=== PATIENT | female | born 1955 | race Two or more races ===

== ENCOUNTER 2017-08-26 11:26 | Outpatient (CLI) | payer OTHER ==
[~2017-08-26 11:26] MED LIST: CIPRO500 MG PO; COZAAR100 MG PO; Carafate Susp 1G/10ML BLIST.PACK PO; DULCOLAX STOOL100 MG PO; ETODOLAC400 MG PO; EXFORGE 10-3201 TAB PO; Levsin/Sl 0.125 MG TAB.SUBL SL; MIRALAX12 EA PO; NABUMETONE500 MG PO; ORPH100T PO; PRILOSEC40 MG PO; PROTONIX40 MG PO; TIZANIDINE HCL4 MG PO; TUSSI PRES-B L120 M1 PO; ZITHROMAX TRI-500 MG PO
== END 2017-08-26 11:27 | disposition home or self-care (01) ==
LOC: RAD 501 11:26
DX: R07.89 Other chest pain (principal)

== ENCOUNTER 2017-10-27 12:20 | Outpatient (CLI) | payer OTHER | END 2017-10-27 12:25 | disposition home or self-care (01) | LOC: MAMO-SONO 12:20 | DX: Z12.31 Encounter for screening mammogram for malignant neoplasm of breast (principal); Z87.898 Personal history of other specified conditions; N63.10 Unspecified lump in the right breast, unspecified quadrant; N63.20 Unspecified lump in the left breast, unspecified quadrant; N60.09 Solitary cyst of unspecified breast ==

== ENCOUNTER 2018-04-23 09:53 | Outpatient (CLI) | payer OTHER ==
[2018-04-28] MEDS ORDERED: TIZANIDINE HCL4 MG PO (15:51)
[2018-04-28] MEDS ORDERED: NABUMETONE500 MG PO (15:51)
== END 2018-04-23 10:11 | disposition home or self-care (01) ==
LOC: MRI 09:53
DX: M25.561 Pain in right knee (principal); M25.562 Pain in left knee
CPT/HCPCS: 73721

== ENCOUNTER 2018-04-26 10:06 | Outpatient (CLI) | payer OTHER ==
[2018-04-28] MEDS ORDERED: NABUMETONE500 MG PO (15:51)
[2018-04-28] MEDS ORDERED: TIZANIDINE HCL4 MG PO (15:51)
== END 2018-04-26 10:11 | disposition home or self-care (01) ==
LOC: NUCLEAR 10:06
DX: I11.9 Hypertensive heart disease without heart failure (principal); I25.9 Chronic ischemic heart disease, unspecified

== ENCOUNTER 2018-05-13 08:46 | Day surgery (SDC) | payer OTHER | END 2018-05-13 11:30 | disposition home or self-care (01) | LOC: AMB-ENDOS 08:46 | DX: D12.5 Benign neoplasm of sigmoid colon (principal); K63.5 Polyp of colon ==

== ENCOUNTER 2018-05-27 09:58 | Outpatient (CLI) | payer OTHER | END 2018-05-27 10:05 | disposition home or self-care (01) | LOC: NUCLEAR 09:58 | DX: I10 Essential (primary) hypertension (principal); R94.31 Abnormal electrocardiogram [ECG] [EKG] ==

== ENCOUNTER 2019-03-16 08:35 | Outpatient (CLI) | payer OTHER ==
[~2019-03-16 08:35] MED LIST changes: +BACLOFEN10 MG PO
== END 2019-03-16 08:46 | disposition home or self-care (01) ==
LOC: NUCLEAR 08:35
DX: M13.0 Polyarthritis, unspecified (principal); M15.0 Primary generalized (osteo)arthritis
CPT/HCPCS: 78306; A9503

== ENCOUNTER 2019-03-18 18:34 | Emergency (ER) | payer OTHER ==
[~2019-03-18] VITALS: Ht 154.9 cm; Wt 53.5 kg
[2019-03-18] MEDS ORDERED: CAMBIA50 MG (19:02)
[2019-03-18] MEDS ORDERED: AVAPRO300 MG (19:03)
[2019-03-18] MEDS ORDERED: GABAPENTIN800 MG (19:03)
[2019-03-18] MEDS ORDERED: AMLODIPINE BESY10 MG (19:04)
[2019-03-18] MEDS ORDERED: CLONAZEPAM2 M1 (19:05)
== END 2019-03-18 20:40 | disposition home or self-care (01) ==
LOC: ER 18:34
DX: S40.012A Contusion of left shoulder, initial encounter (principal); S70.02XA Contusion of left hip, initial encounter; W18.09XA Striking against other object with subsequent fall, initial encounter; Y93.89 Activity, other specified; Y92.098 Other place in other non-institutional residence as the place of occurrence of the external cause; Y99.8 Other external cause status

== ENCOUNTER → 2019-03-25 | Outpatient (CLI) | payer OTHER ==
[~2019-03-25] MED LIST changes: +AMLODIPINE BESY10 MG; +AVAPRO300 MG; +CAMBIA50 MG; +CLONAZEPAM2 M1; +GABAPENTIN800 MG
== END | disposition home or self-care (01) ==
LOC: SONOGRAMA 09:43 → MAMO-SONO 10:45
DX: S40.912A Unspecified superficial injury of left shoulder, initial encounter (principal)

== ENCOUNTER 2019-06-03 07:27 | Outpatient (CLI) | payer OTHER | END 2019-06-03 08:00 | disposition home or self-care (01) | LOC: NUCLEAR 07:27 | DX: I20.9 Angina pectoris, unspecified (principal) | CPT/HCPCS: 78452; 93017; A9500; J0153 ==

== ENCOUNTER 2019-06-09 11:46 | Outpatient (CLI) | payer OTHER | END 2019-06-09 11:50 | disposition home or self-care (01) | LOC: LAB 11:46 | DX: N20.0 Calculus of kidney (principal) ==

== ENCOUNTER 2019-06-17 09:59 | Outpatient (CLI) | payer OTHER | END 2019-06-17 11:50 | disposition home or self-care (01) | LOC: TOM 09:59 | DX: K66.0 Peritoneal adhesions (postprocedural) (postinfection) (principal); K30 Functional dyspepsia; R10.10 Upper abdominal pain, unspecified; R10.30 Lower abdominal pain, unspecified | CPT/HCPCS: 74177; Q9965 ==

== ENCOUNTER 2019-08-16 05:21 | Day surgery (SDC) | payer OTHER ==
[~2019-08-16 05:21] MED LIST changes: +KETO10TA2 PO
== END 2019-08-16 10:35 | disposition home or self-care (01) ==
LOC: AMB-ENDOS 05:21
DX: K62.89 Other specified diseases of anus and rectum (principal); K66.0 Peritoneal adhesions (postprocedural) (postinfection); Z86.010 Personal history of colon polyps

== ENCOUNTER 2019-09-01 12:44 | Outpatient (CLI) | payer OTHER | END 2019-09-01 13:44 | disposition home or self-care (01) | LOC: NUCLEAR 12:44 | DX: M81.0 Age-related osteoporosis without current pathological fracture (principal) ==

== ENCOUNTER 2019-10-26 10:54 | Outpatient (CLI) | payer OTHER | END 2019-10-26 11:04 | disposition home or self-care (01) | LOC: MRI 10:54 | DX: M54.2 Cervicalgia (principal); M54.5 Low back pain | CPT/HCPCS: 72141; 72148 ==

== ENCOUNTER 2020-01-26 11:24 | Emergency (ER) | payer OTHER ==
[~2020-01-26] VITALS: Ht 154.9 cm; Wt 56.7 kg
== END 2020-01-26 16:33 | disposition home or self-care (01) ==
LOC: ER 11:24
DX: S00.83XA Contusion of other part of head, initial encounter (principal); S06.0X0A Concussion without loss of consciousness, initial encounter; M54.2 Cervicalgia; Z03.818 Encounter for observation for suspected exposure to other biological agents ruled out; W22.8XXA Striking against or struck by other objects, initial encounter; Y93.89 Activity, other specified; Y92.89 Other specified places as the place of occurrence of the external cause; Y99.8 Other external cause status

== ENCOUNTER 2020-06-25 12:20 | Outpatient (CLI) | payer OTHER ==
[~2020-06-25 12:20] MED LIST changes: +NABUMETONE750 MG PO
[2020-07-04] MEDS ORDERED: ZANAFLEX2 MG PO (11:34)
== END 2020-06-25 14:46 | disposition home or self-care (01) ==
LOC: MRI 12:20
PROVIDERS: ATTEND Internal Medicine
DX: G93.89 Other specified disorders of brain (principal)
CPT/HCPCS: 70551

== ENCOUNTER 2020-06-29 10:51 | Outpatient (CLI) | payer OTHER ==
[2020-07-04] MEDS ORDERED: ZANAFLEX2 MG PO (11:34)
== END 2020-06-29 11:19 | disposition home or self-care (01) ==
LOC: NUCLEAR 10:51
PROVIDERS: ATTEND Internal Medicine
DX: I65.23 Occlusion and stenosis of bilateral carotid arteries (principal)

== ENCOUNTER 2020-09-05 12:32 | Outpatient (CLI) | payer OTHER ==
[~2020-09-05 12:32] MED LIST changes: +ZANAFLEX2 MG PO
== END 2020-09-05 12:43 | disposition home or self-care (01) ==
LOC: MRI 12:32
PROVIDERS: ATTEND Physical Medicine & Rehabilitation
DX: M54.5 Low back pain (principal); M51.37 Other intervertebral disc degeneration, lumbosacral region
CPT/HCPCS: 72148

== ENCOUNTER 2020-11-22 10:53 | Outpatient (CLI) | payer OTHER | END 2020-11-22 10:57 | disposition home or self-care (01) | LOC: RAD 10:53 | PROVIDERS: ATTEND Student in an Organized Health Care Education/Training Program | DX: M54.16 Radiculopathy, lumbar region (principal); M54.12 Radiculopathy, cervical region; M47.812 Spondylosis without myelopathy or radiculopathy, cervical region ==

== ENCOUNTER 2020-11-28 14:36 | Outpatient (CLI) | payer OTHER | END 2020-11-28 14:54 | disposition home or self-care (01) | LOC: MRI 14:36 | PROVIDERS: ATTEND Student in an Organized Health Care Education/Training Program | DX: M54.16 Radiculopathy, lumbar region (principal); M47.812 Spondylosis without myelopathy or radiculopathy, cervical region; M54.12 Radiculopathy, cervical region | CPT/HCPCS: 72141; 72146 ==

== ENCOUNTER 2021-01-25 10:59 | Outpatient (CLI) | payer OTHER | END 2021-01-25 15:57 | disposition home or self-care (01) | LOC: TOM 10:59 | PROVIDERS: ATTEND Surgery | DX: N20.0 Calculus of kidney (principal); R31.21 Asymptomatic microscopic hematuria | CPT/HCPCS: 74177; Q9965 ==

== ENCOUNTER → 2021-06-17 | Outpatient (CLI) | payer OTHER ==
[~2021-06-17] MED LIST changes: +CYCLOBENZAPRINE10 MG PO; +DICLOFENAC SOD100 MG PO
== END | disposition home or self-care (01) ==
LOC: RAD 15:38
PROVIDERS: ATTEND Orthopaedic Surgery
DX: M25.561 Pain in right knee (principal); M25.562 Pain in left knee

== ENCOUNTER → 2021-06-25 | Outpatient (CLI) | payer OTHER | END | disposition home or self-care (01) | LOC: MRI 10:46 | PROVIDERS: ATTEND Orthopaedic Surgery | DX: M25.561 Pain in right knee (principal); M25.562 Pain in left knee | CPT/HCPCS: 73721 ==

== ENCOUNTER 2021-08-27 05:40 | Day surgery (SDC) | payer OTHER | END 2021-08-27 10:45 | disposition home or self-care (01) | LOC: AMB-ENDOS 05:40 | PROVIDERS: ATTEND Internal Medicine Gastroenterology | DX: K29.70 Gastritis, unspecified, without bleeding (principal); K29.80 Duodenitis without bleeding ==

== ENCOUNTER 2021-08-29 10:11 | Outpatient (CLI) | payer OTHER | END 2021-08-30 16:32 | disposition home or self-care (01) | LOC: MRI 10:11 | PROVIDERS: ATTEND Anesthesiology | DX: M54.50 Low back pain, unspecified (principal) | CPT/HCPCS: 72148 ==

== ENCOUNTER 2022-04-08 13:49 | Outpatient (CLI) | payer OTHER ==
[~2022-04-08 13:49] MED LIST changes: +GABAPENTIN800 MG PO
== END 2022-04-08 14:14 | disposition home or self-care (01) ==
LOC: MRI 13:49
PROVIDERS: ATTEND Internal Medicine
DX: M54.17 Radiculopathy, lumbosacral region (principal)
CPT/HCPCS: 72148

== ENCOUNTER 2022-09-15 11:01 | Outpatient (CLI) | payer OTHER ==
[~2022-09-15 11:01] MED LIST changes: +CYMBALTA30 MG PO
== END 2022-09-15 11:05 | disposition home or self-care (01) ==
LOC: NUCLEAR 11:01
PROVIDERS: ATTEND Internal Medicine
DX: M81.0 Age-related osteoporosis without current pathological fracture (principal)

== ENCOUNTER 2022-11-19 15:07 | Emergency (ER) | payer OTHER ==
[~2022-11-19] VITALS: Ht 154.9 cm; Wt 56.7 kg
[2022-11-19] MEDS ORDERED: ATORVASTATIN CA40 MG (16:12)
[2022-11-19] MEDS ORDERED: AMLODIPINE-OLM1 EAC3 (16:12)
[2022-11-19] MEDS ORDERED: AVAPRO300 MG (16:12)
== END 2022-11-19 21:10 | disposition home or self-care (01) ==
LOC: ER 15:07
DX: M94.0 Chondrocostal junction syndrome [Tietze] (principal)

== ENCOUNTER 2022-12-02 09:52 | Outpatient (CLI) | payer OTHER ==
[~2022-12-02 09:52] MED LIST changes: +AMLODIPINE-OLM1 EAC3; +ATORVASTATIN CA40 MG
== END 2022-12-02 10:19 | disposition home or self-care (01) ==
LOC: MRI 09:52
PROVIDERS: ATTEND Internal Medicine Gastroenterology
DX: Z86.73 Personal history of transient ischemic attack (TIA), and cerebral infarction without residual deficits (principal); K21.9 Gastro-esophageal reflux disease without esophagitis; K66.0 Peritoneal adhesions (postprocedural) (postinfection); R13.14 Dysphagia, pharyngoesophageal phase; K21.00 Gastro-esophageal reflux disease with esophagitis, without bleeding
CPT/HCPCS: 70551

== ENCOUNTER 2022-12-25 07:14 | Outpatient (CLI) | payer OTHER | END 2022-12-25 07:15 | disposition home or self-care (01) | LOC: NUCLEAR 07:14 | PROVIDERS: ATTEND Internal Medicine | DX: I20.9 Angina pectoris, unspecified (principal) | CPT/HCPCS: 78452; 93017; A9500; J0153 ==

== ENCOUNTER 2022-12-31 10:04 | Outpatient (CLI) | payer OTHER | END 2022-12-31 10:05 | disposition home or self-care (01) | LOC: NUCLEAR 10:04 | PROVIDERS: ATTEND Internal Medicine | DX: I25.118 Atherosclerotic heart disease of native coronary artery with other forms of angina pectoris (principal); I11.9 Hypertensive heart disease without heart failure; G45.9 Transient cerebral ischemic attack, unspecified; R07.9 Chest pain, unspecified ==

== ENCOUNTER 2023-03-02 14:54 | Emergency (ER) | payer OTHER ==
[~2023-03-02] VITALS: Ht 160 cm; Wt 72.6 kg
== END 2023-03-02 21:44 | disposition home or self-care (01) ==
LOC: ER 14:54
DX: N30.90 Cystitis, unspecified without hematuria (principal); Z88.8 Allergy status to other drugs, medicaments and biological substances
CPT/HCPCS: 36415; 74176; 96365; 99284; J0744; J1885

== ENCOUNTER 2023-03-12 13:51 | Outpatient (CLI) | payer OTHER | END 2023-03-12 14:00 | disposition home or self-care (01) | LOC: SONOGRAMA 13:51 | PROVIDERS: ATTEND Internal Medicine | DX: N18.31 Chronic kidney disease, stage 3a (principal) ==

== ENCOUNTER 2023-07-06 11:59 | Emergency (ER) | payer OTHER ==
[~2023-07-06] VITALS: Ht 154.9 cm; Wt 58.1 kg
[2023-07-06 14:19] LABS: HEMATOCRIT 40.1 % (36.0-45.00); HEMOGLOBIN 13.4 g/dL (12.0-15.00); MEAN CORPUSCULAR HEMOGLOBIN 30.5 pg (27.00-32.0); MEAN CORPUSCULAR HGB CONC 33.5 g/dl (32.0-36.0); PLATELET COUNT 307 K/uL (150-450); RED CELL DISTRIBUTION WIDTH 14.1 % (11.5-14.5)
[2023-07-06 14:45] LABS: ALBUMIN 3.8 gm/dL (3.4-5.0); BILIRUBIN TOTAL 0.45 mg/dL (0.3-1.2); CALCIUM 9.5 mg/dL (8.5-10.1); CREATININE SERUM 0.63 mg/dL (0.55-1.02); GFR 94.84; POTASSIUM 3.89 mEq/L (3.5-5.1); TOTAL PROTEIN 7.8 gm/dL (6.4-8.2)
[2023-07-06 15:40] LABS: PH,URINE 5.5 (5.0-8.0); URINE APPEARANCE Cloudy; URINE BILIRRUBIN Negative (NEGATIVE); URINE BLOOD Large; URINE COLOR Yellow; URINE GLUCOSE Negative (NEGATIVE); URINE LEUKOCYTE Moderate; URINE NITRATE Negative; URINE PROTEIN 30 (NEGATIVE); URINE UROBILINOGEN 0.2 E.U./dl
[2023-07-06 15:43] LABS: URINE BACTERIA 241.8 uL (0.0-1933); URINE EPITHELIAL CELLS 2.7 uL (0.0-38.8); URINE RBC 344.3 uL (0.0-20.8); URINE WBC 2444.1 uL (0.0-23.2)
[2023-07-07 07:13] LABS: HEMATOCRIT 35.3 % (36.0-45.00); HEMOGLOBIN 12.2 g/dL (12.0-15.00); MEAN CELL VOLUME 90.3 fL (80.00-100.00); MEAN CORPUSCULAR HEMOGLOBIN 31.1 pg (27.00-32.0); MEAN CORPUSCULAR HGB CONC 34.5 g/dl (32.0-36.0); PLATELET COUNT 251 K/uL (150-450); RED BLOOD COUNT 3.91 M/uL (4.00-6.00); RED CELL DISTRIBUTION WIDTH 13.9 % (11.5-14.5)
[2023-07-07 07:44] LABS: ALBUMIN 3.1 gm/dL (3.4-5.0); BILIRUBIN TOTAL 0.4 mg/dL (0.3-1.2); CALCIUM 8.4 mg/dL (8.5-10.1); CREATININE SERUM 0.48 mg/dL (0.55-1.02); GFR 129.8; GLOBULINA 3.6 G/DL (2.4-3.5); POTASSIUM 3.64 mEq/L (3.5-5.1); TOTAL PROTEIN 6.7 gm/dL (6.4-8.2)
== END 2023-07-07 10:39 | disposition home or self-care (01) ==
LOC: ER 11:59
PROVIDERS: Internal Medicine
DX: N20.0 Calculus of kidney (principal); N39.0 Urinary tract infection, site not specified; R31.9 Hematuria, unspecified; I10 Essential (primary) hypertension; Z88.8 Allergy status to other drugs, medicaments and biological substances
CPT/HCPCS: 76775; 96365; 96366; 99285; J0696; J1885; J2405; J2543; J3490

== ENCOUNTER 2024-05-05 17:17 | Inpatient (IN) | payer OTHER ==
[~2024-05-05] VITALS: Ht 154.9 cm; Wt 54.4 kg
[~2024-05-05 17:17] MED LIST changes: +DEXILANT60 MG; +DICY20TA PO; +DULCOLAX5 MG; +INTESTINEX680 M1 PO; +IRBESARTAN300 MG PO; +LEVSIN0.125 MG PO; +METRONIDAZOLE500 MG PO; +MIRALAX17 GM; +NORVASC10 MG; +ONDANSETRON HCL4 MG PO; +PEPCID AC20 MG PO
--- NOTE | 2024-05-05 17:36 | NUR ---
PTE ALERTA Y ORIENTADA X3, REFIERE VENIR POR REFERDIO DE DR.ANGEL NABIL HECTOR PARA SER ADMITIDA POR COLITIS. SE OBSERVA ABDOMEN DISTENDIDO, PTE REFIERE DOLOR. SE EDITH SV Y SE UBICA
[2024-05-05] MEDS ORDERED: 0.9 % SODIUM CHLORIDE 500 ML IV ONE (18:00)
[2024-05-05] MEDS ORDERED: MEPERIDINE HCL/PF 50 MG/ML VIAL IM STA (18:06)
[2024-05-05] MEDS ORDERED: PROMETHAZINE HCL 25 MG/ML AMPUL IM ONE (18:15)
--- NOTE | 2024-05-05 18:20 | NUR ---
SE ORIENTA PTE SOBRE TX A SEGUIR, LA MISMA REFIERE ENTENDER. SE MYNOR MUESTRA DE LAB, SE CANALIZA Y SE ADMINISTRA MED RISSA ORDEN MEDICA. SE OTIFICA ABG A TR TAVERAS
[2024-05-05 18:22] LABS: HEMATOCRIT 37.8 % (36.0-45.00); HEMOGLOBIN 12.9 g/dL (12.0-15.00); MEAN CELL VOLUME 88.4 fL (80.00-100.00); MEAN CORPUSCULAR HEMOGLOBIN 30.2 pg (27.00-32.0); MEAN CORPUSCULAR HGB CONC 34.1 g/dl (32.0-36.0); PLATELET COUNT 341 K/uL (150-450); RED BLOOD COUNT 4.28 M/uL (4.00-6.00); RED CELL DISTRIBUTION WIDTH 13.9 % (11.5-14.5)
[2024-05-05 18:53] LABS: ALBUMIN 3.5 gm/dL (3.4-5.0); BILIRUBIN TOTAL 0.19 mg/dL (0.3-1.2); CALCIUM 9.7 mg/dL (8.5-10.1); CREATININE SERUM 0.7 mg/dL (0.55-1.02); GFR 83.72; GLOBULINA 3.6 G/DL (2.4-3.5); POTASSIUM 4.38 mEq/L (3.5-5.1); TOTAL PROTEIN 7.1 gm/dL (6.4-8.2)
[2024-05-05 19:16] LABS: ABG PH 7.356 (7.35-7.45); ABG PO2 89.6 mmHg (80-100); ABG pCO2 35.6 mmHg (35-45); BASE EXCESS 2.3 mmol/l; BICARBONATE 23.4 mmol/l (23-25); SaO2 95.6 %; Tco2 24.5 mmol/l; allen test SATISFACTORY; o2 95 %; puncture site RADIAL RIGHT
[2024-05-05] MEDS ORDERED: PIPERACILLIN/TAZOBACTAM SODIUM 3.375 GM VIAL IV ONE (20:00)
[2024-05-05] MEDS ORDERED: PANTOPRAZOLE SODIUM 40 MG/VIAL VIAL IV SCH (20:43)
[2024-05-05] MEDS ORDERED: ONDANSETRON HCL 4 MG in 0.9 % SODIUM CHLORIDE 50 ML IV PRN (20:45)
[2024-05-05] MEDS ORDERED: 0.9 % SODIUM CHLORIDE 1,000 ML IV SCH (20:45)
[2024-05-05] MEDS ORDERED: KETOROLAC TROMETHAMINE 15 MG VIAL IU ONE (20:45)
[2024-05-05] MEDS ORDERED: MORPHINE SULFATE 2 MG/ML CARTRIDGE IV SCH (20:45)
[2024-05-05] MEDS ORDERED: MORPHINE SULFATE 4 MG/ML CARTRIDGE IV PRN (21:00)
[2024-05-05] MEDS ORDERED: MORPHINE SULFATE 2 MG/ML CARTRIDGE IV ONE (21:00)
[2024-05-05 21:30] LABS: URINE APPEARANCE Clear; URINE BILIRRUBIN Negative (NEGATIVE); URINE BLOOD Negative; URINE COLOR Yellow; URINE GLUCOSE Negative (NEGATIVE); URINE KETONE Trace (NEGATIVE); URINE LEUKOCYTE Small; URINE NITRATE Negative; URINE PROTEIN Trace (NEGATIVE); URINE UROBILINOGEN 0.2 E.U./dl
[2024-05-05 21:34] LABS: URINE BACTERIA 56.6 uL (0.0-1933); URINE CAST 1.98 uL (0.0-1.40); URINE EPITHELIAL CELLS 24.1 uL (0.0-38.8); URINE RBC 17.2 uL (0.0-20.8)
[2024-05-05 21:49] LABS: URINE CRYSTALS FEW /HPF; URINE MUCUS HEAVY
[2024-05-05 22:16] LABS: INR 1.08; PARTIAL THROMBOPLASTIN TIME 26.4 SECONDS (22.0-34.0); PROTHROMBIN TIME 11.7 SECONDS (9.0-11.5)
[2024-05-05 22:26] LABS: C-REACTIVE PROTEIN 0.4 MG/DL (0.00-0.29)
[2024-05-06] MEDS ORDERED: PIPERACILLIN/TAZOBACTAM SODIUM 3.375 GM in DEXTROSE 5 % IN WATER 100 ML IV SCH
[2024-05-06 00:19] VITALS: BP 152/73; O2SAT 100
[2024-05-06 01:21] VITALS: BP 132/60; O2SAT 94
[2024-05-06] MEDS ORDERED: ENOXAPARIN SODIUM 40 MG/0.4 ML SYRINGE SUBCUTANEO SCH (09:00)
[2024-05-06] MEDS ORDERED: SERTRALINE HCL 50 MG TABLET PO SCH (09:00)
[2024-05-06] MEDS ORDERED: IRBESARTAN 300 MG TABLET PO SCH (09:00)
[2024-05-06] MEDS ORDERED: AMLODIPINE BESYLATE 10 MG TABLET PO SCH (09:00)
[2024-05-06] MEDS ORDERED: METOPROLOL SUCCINATE 25 MG TAB.SR.24H PO SCH (09:00)
[2024-05-06] MEDS ORDERED: CLONAZEPAM 1 MG TABLET PO SCH ×2 (09:00→21:00)
[2024-05-06 09:02] VITALS: BP 140/69; O2SAT 98
[2024-05-06] MEDS ORDERED: TUBERCULIN,PURIF.PROT.DERIV. 10 SKIN.TEST SKIN.TEST ID NR (14:15)
[2024-05-06 17:36] VITALS: BP 140/60; O2SAT 99
[2024-05-06] MEDS ORDERED: PANTOPRAZOLE SODIUM 40 MG/VIAL VIAL IV SCH (21:33)
[2024-05-06] MEDS ORDERED: SUCRALFATE 1 G TABLET PO SCH (21:33)
[2024-05-06] MEDS ORDERED: DEXTROSE 5 % IN WATER 1,000 ML IV SCH (23:00)
[2024-05-07 00:36] VITALS: BP 147/62
[2024-05-07 08:00] LABS: HEMATOCRIT 35.9 % (36.0-45.00); HEMOGLOBIN 12.2 g/dL (12.0-15.00); MEAN CORPUSCULAR HEMOGLOBIN 30.6 pg (27.00-32.0); PLATELET COUNT 296 K/uL (150-450); RED BLOOD COUNT 3.99 M/uL (4.00-6.00); RED CELL DISTRIBUTION WIDTH 13.6 % (11.5-14.5)
[2024-05-07 08:33] LABS: ALBUMIN 3.4 gm/dL (3.4-5.0); BILIRUBIN TOTAL 0.4 mg/dL (0.3-1.2); CALCIUM 8.4 mg/dL (8.5-10.1); CREATININE SERUM 0.37 mg/dL (0.55-1.02); GFR 174.73; GLOBULINA 3.5 G/DL (2.4-3.5); PHOSPHOROUS 2.6 mg/dL (2.5-4.9); POTASSIUM 3.38 mEq/L (3.5-5.1); TOTAL PROTEIN 6.9 gm/dL (6.4-8.2)
[2024-05-07 08:52] VITALS: BP 148/80; O2SAT 99
[2024-05-07] MEDS ORDERED: POTASSIUM BICARBONATE/CIT AC 25 MEQ TABLET.EFF PO NR (10:30)
[2024-05-07] MEDS ORDERED: INTESTINEX680 M1 PO (13:08)
[2024-05-07] MEDS ORDERED: TRAM1TAB98 PO (13:08)
[2024-05-07] MEDS ORDERED: AMLODIPINE BESY10 MG PO (13:09)
[2024-05-07] MEDS ORDERED: ZOFRAN8 MG PO (13:09)
[2024-05-07] MEDS ORDERED: CARAFATE1 GM PO (13:10)
[2024-05-07] MEDS ORDERED: SERTRALINE HCL50 MG PO (13:10)
[2024-05-07] MEDS ORDERED: PEPCID AC20 MG PO (13:11)
[2024-05-07] MEDS ORDERED: HYDROCHLOROTHIA25 MG PO (13:18)
[2024-05-07] MEDS ORDERED: AVAPRO300 MG PO (13:18)
== END 2024-05-07 14:17 | disposition home or self-care (01) | DRG 392 ==
LOC: ER 17:17 → MEDJ 21:18
PROVIDERS: General Practice; Nurse Practitioner Family; ADMIT Internal Medicine; ATTEND Internal Medicine
PROC: BW21ZZZ Computerized Tomography (CT Scan) of Abdomen and Pelvis (ICD-10-PCS; principal; 2024-05-05)
DX: K52.9 Noninfective gastroenteritis and colitis, unspecified (principal); E87.6 Hypokalemia; K29.70 Gastritis, unspecified, without bleeding; K27.9 Peptic ulcer, site unspecified, unspecified as acute or chronic, without hemorrhage or perforation; R00.1 Bradycardia, unspecified; Z88.2 Allergy status to sulfonamides; Z88.8 Allergy status to other drugs, medicaments and biological substances

== ENCOUNTER 2024-06-02 06:28 | Day surgery (SDC) | payer OTHER ==
[~2024-06-02 06:28] MED LIST changes: +AMLODIPINE BESY10 MG PO; +AVAPRO300 MG PO; +CARAFATE1 GM PO; +HYDROCHLOROTHIA25 MG PO; +SERTRALINE HCL50 MG PO; +TRAM1TAB98 PO; +ZOFRAN8 MG PO
== END 2024-06-02 10:00 | disposition home or self-care (01) ==
LOC: AMB-ENDOS 06:28 → CIR.AMB 13:45
PROVIDERS: ATTEND Internal Medicine Gastroenterology
DX: D12.0 Benign neoplasm of cecum (principal); K52.89 Other specified noninfective gastroenteritis and colitis; R10.30 Lower abdominal pain, unspecified; Z88.2 Allergy status to sulfonamides

== ENCOUNTER 2024-08-27 09:54 | Emergency (ER) | payer OTHER ==
[~2024-08-27] VITALS: Ht 154.9 cm; Wt 62.6 kg
[2024-08-27] MEDS ORDERED: REPATHA SU140 MG/1 M SUBCUTANEO (10:24)
[2024-08-27] MEDS ORDERED: AVAPRO300 MG PO (10:25)
[2024-08-27] MEDS ORDERED: TRAMADOL HCL 50 MG TABLET PO ONE (10:45)
[2024-08-27 12:02] LABS: HEMATOCRIT 37.5 % (36.0-45.00); HEMOGLOBIN 12.7 g/dL (12.0-15.00); MEAN CELL VOLUME 89.8 fL (80.00-100.00); MEAN CORPUSCULAR HEMOGLOBIN 30.6 pg (27.00-32.0); PLATELET COUNT 303 K/uL (150-450); RED BLOOD COUNT 4.17 M/uL (4.00-6.00); RED CELL DISTRIBUTION WIDTH 13.7 % (11.5-14.5)
[2024-08-27 12:21] LABS: ALBUMIN 3.5 gm/dL (3.4-5.0); BILIRUBIN TOTAL 0.23 mg/dL (0.3-1.2); CALCIUM 9.5 mg/dL (8.5-10.1); CREATININE SERUM 0.54 mg/dL (0.55-1.02); GFR 112.95; GLOBULINA 3.8 G/DL (2.4-3.5); POTASSIUM 4.57 mEq/L (3.5-5.1); TOTAL PROTEIN 7.3 gm/dL (6.4-8.2)
[2024-08-27 13:10] LABS: INR 0.95; PROTHROMBIN TIME 10.4 SECONDS (9.0-11.5)
[2024-08-27] MEDS ORDERED: KETO10TA2 PO (13:36)
[2024-08-27] MEDS ORDERED: NORFLEX100MG PO (13:36)
== END 2024-08-27 14:14 | disposition home or self-care (01) ==
LOC: ER 09:57
PROVIDERS: General Practice
DX: M62.838 Other muscle spasm (principal); I10 Essential (primary) hypertension; Z88.2 Allergy status to sulfonamides; Z88.8 Allergy status to other drugs, medicaments and biological substances

== ENCOUNTER 2024-10-19 10:45 | Emergency (ER) | payer OTHER ==
[~2024-10-19] VITALS: Ht 154.9 cm; Wt 63.5 kg
[~2024-10-19 10:45] MED LIST changes: +NORFLEX100MG PO; +REPATHA SU140 MG/1 M SUBCUTANEO
[2024-10-19 11:14] VITALS: BP 138/80; O2SAT 69
[2024-10-19] MEDS ORDERED: KETOROLAC TROMETHAMINE 30 MG VIAL IV STA (12:26)
[2024-10-19] MEDS ORDERED: 0.9 % SODIUM CHLORIDE 1,000 ML IV STA (12:26)
[2024-10-19] MEDS ORDERED: MORPHINE SULFATE 4 MG/ML VIAL IV STA (12:27)
[2024-10-19] MEDS ORDERED: HYOSCYAMINE SULFATE 0.125 MG TAB.SUBL SL ONE (12:30)
[2024-10-19] MEDS ORDERED: HYOSCYAMINE SULFATE 0.125 MG TAB.SUBL ONE (12:36)
[2024-10-19] MEDS ORDERED: KETOROLAC TROMETHAMINE 30 MG VIAL ONE (12:36)
[2024-10-19 13:03] LABS: HEMATOCRIT 38.5 % (36.0-45.00); HEMOGLOBIN 13.1 g/dL (12.0-15.00); MEAN CELL VOLUME 89.5 fL (80.00-100.00); MEAN CORPUSCULAR HEMOGLOBIN 30.5 pg (27.00-32.0); MEAN CORPUSCULAR HGB CONC 34.1 g/dl (32.0-36.0); PLATELET COUNT 331 K/uL (150-450); RED CELL DISTRIBUTION WIDTH 13.5 % (11.5-14.5)
[2024-10-19 13:28] LABS: INR 0.97; PROTHROMBIN TIME 10.6 SECONDS (9.0-11.5)
[2024-10-19 13:29] LABS: PARTIAL THROMBOPLASTIN TIME < 20.0 SECONDS (22.0-34.0)
[2024-10-19 13:45] LABS: ALBUMIN 3.5 gm/dL (3.4-5.0); BILIRUBIN TOTAL 0.4 mg/dL (0.3-1.2); CALCIUM 9.3 mg/dL (8.5-10.1); CREATININE SERUM 0.43 mg/dL (0.55-1.02); GFR 146.46; GLOBULINA 3.6 G/DL (2.4-3.5); TOTAL PROTEIN 7.1 gm/dL (6.4-8.2)
[2024-10-19 14:38] LABS: PH,URINE 6.5 (5.0-8.0); URINE APPEARANCE Clear; URINE BILIRRUBIN Negative (NEGATIVE); URINE BLOOD Negative; URINE COLOR Yellow; URINE GLUCOSE Negative (NEGATIVE); URINE KETONE Negative (NEGATIVE); URINE LEUKOCYTE Negative; URINE NITRATE Negative; URINE PROTEIN Negative (NEGATIVE); URINE UROBILINOGEN 0.2 E.U./dl
[2024-10-19 14:42] LABS: URINE BACTERIA 62.3 uL (0.0-1933); URINE EPITHELIAL CELLS 5.2 uL (0.0-38.8); URINE WBC 3.9 uL (0.0-23.2)
[2024-10-19 14:53] LABS: URINE CAST 0.14 uL (0.0-1.40)
== END 2024-10-19 15:41 | disposition home or self-care (01) ==
LOC: ER 10:48
DX: N20.0 Calculus of kidney (principal); Z88.2 Allergy status to sulfonamides; Z88.8 Allergy status to other drugs, medicaments and biological substances

== ENCOUNTER 2025-07-12 11:15 | Outpatient (CLI) | payer OTHER ==
[2025-07-12 12:32] LABS: CREATININE SERUM 0.56 mg/dL (0.55-1.02)
== END 2025-07-12 11:19 | disposition home or self-care (01) ==
LOC: LAB 11:15
PROVIDERS: ATTEND Radiology Diagnostic Radiology
DX: R05.1 Acute cough (principal)

== ENCOUNTER 2025-07-13 07:06 | Outpatient (CLI) | payer OTHER | END 2025-07-13 08:07 | disposition home or self-care (01) | LOC: TOM 07:06 | PROVIDERS: ATTEND Internal Medicine | DX: R05.1 Acute cough (principal) | CPT/HCPCS: 71260; Q9965 ==